=== PATIENT | female | born 1965 | race Caucasian/White ===

== ENCOUNTER 2018-08-17 13:22 | Outpatient (CLI) | payer OTHER | END 2018-08-17 13:23 | disposition home or self-care (01) | DRG 552 | LOC: CONVCARE 13:22 | PROVIDERS: ATTEND Orthopaedic Surgery | DX: M54.9 Dorsalgia, unspecified (principal) | CPT/HCPCS: 72120; 72158; A9585 ==

== ENCOUNTER 2018-08-23 18:35 | Emergency (ER) | payer OTHER ==
[2018-08-23] MEDS ORDERED: ALBUTEROL NEB SOL 2.5MG/3ML 1 VIAL SOL NEB ONE (18:43)
[2018-08-23] MEDS ORDERED: LORAZEPAM 0.5 MG TAB PO ONE (18:55)
[2018-08-23] MEDS ORDERED: LORAZEPAM 0.5 MG TAB ONE (18:59)
[2018-08-23] MEDS ORDERED: ALBUTEROL NEB SOL 2.5MG/3ML 1 VIAL SOL ONE (19:00)
[2018-08-23 19:06] LABS: BASOPHILS % (AUTO) 1 % (0-3); EOSINOPHILS % (AUTO) 3 % (0-9); HEMATOCRIT 36 % (35-47); HEMOGLOBIN 12.2 gm/dl (12.0-15.5); LYMPHOCYTES % (AUTO) 21.9 % (10-50); MEAN CORPUSCULAR HEMOGLOBIN 29.6 pg (27.0-32.0); MEAN CORPUSCULAR HGB CONC 33.7 gm/dl (32.0-36.0); MEAN CORPUSCULAR VOLUME 88 fL (81-99); MONOCYTES % (AUTO) 10.6 % (0-12); NEUTROPHILS % (AUTO) 62.7 % (37-80)
[2018-08-23 19:26] LABS: BLOOD UREA NITROGEN 11 mg/dl (7-18); CALCIUM 8.6 mg/dl (8.5-10.1); CHLORIDE 93 mMol/L (98-107); CREATININE 0.98 mg/dl (0.60-1.00); GLUCOSE 90 mg/dl (74-106); POTASSIUM 3.9 mMol/L (3.5-5.1); SODIUM 130 mMol/L (136-145); TROP I < 0.017 ng/ml (0.000-0.056)
[2018-08-23 19:30] LABS: CARBON DIOXIDE 31.2 mEq/L (21-32)
[2018-08-23 19:39] VITALS: RESP 18; TEMP 98.5
[2018-08-23] MEDS ORDERED: SOLUMEDROL 125 MG/2 ML 125 MG/2 ML PDS IV ONE (20:17)
[2018-08-23] MEDS ORDERED: ONDANSETRON HCL 4 MG/2 ML SOL IV ONE (20:17)
[2018-08-23] MEDS ORDERED: ONDANSETRON HCL 4 MG/2 ML SOL ONE (20:18)
[2018-08-23] MEDS ORDERED: SOLUMEDROL 125 MG/2 ML 125 MG/2 ML PDS ONE (20:18)
[2018-08-23] MEDS: SODIUM CHLORIDE 0.9% 1000ML 1,000 ML IV SCH ×2 (20:27→21:15)
[2018-08-23 20:40] LABS: APPEARANCE,URINE Clear; BILIRUBIN,URINE NEGATIVE (NEGATIVE); COLOR,URINE Yellow; GLUCOSE, URINE (UA) NEGATIVE (NEGATIVE); KETONES,URINE NEGATIVE (NEGATIVE); LEUKOCYTE ESTERASE ,URINE NEGATIVE (NEGATIVE); NITRATE,URINE NEGATIVE (NEGATIVE); OCCULT BLOOD,URINE NEGATIVE (NEG-TRACE); UROBILINOGEN,URINE 0.2 (0.2-1.0 EU)
[2018-08-23 20:57] LABS: BACTERIA NEGATIVE (< 1+); CRYSTALS NEGATIVE (0-3 AVE/HPF); EPITHELIAL CELLS 0-1 (SQUAMOUS); RBC,URINE NEG (0-3AV/HPF); WBC,URINE NEG (0-5AV/HPF)
[2018-08-23] MEDS ORDERED: FLEET ENEMA PR PRN (21:00)
[2018-08-23 21:50] VITALS: PULSE 82; O2SAT 95
[2018-08-23 21:51] VITALS: BP 141/83
== END 2018-08-23 22:02 | disposition home or self-care (01) | DRG 204 ==
LOC: ED 18:35
DX: R06.02 Shortness of breath (principal); E87.1 Hypo-osmolality and hyponatremia; C85.90 Non-Hodgkin lymphoma, unspecified, unspecified site; K59.03 Drug induced constipation; T40.2X5A Adverse effect of other opioids, initial encounter
CPT/HCPCS: 36415; 80048; 81001; 84484; 85025; 85378; 93005; 96365; 96374; 96375; 99284; 99285; J2405; J2930; J7613; A9270-GY

== ENCOUNTER 2018-11-15 21:40 | Emergency (ER) | payer OTHER ==
[2018-11-15 21:58] VITALS: RESP 20; TEMP 97.1; O2SAT 100
[2018-11-15] MEDS ORDERED: HYDROMORPHONE 1 MG/ML SYRINGE IV ONE (22:08)
[2018-11-15] MEDS ORDERED: LEVOFLOXACIN 500 MG TAB PO ONE (22:38)
[2018-11-15] MEDS ORDERED: ALBUTEROL/IPRATROPIUM 1 VIAL SOL INH ONE (22:38)
[2018-11-15] MEDS ORDERED: LEVOFLOXACIN 500 MG TAB ONE (22:39)
[2018-11-15] MEDS ORDERED: ALBUTEROL/IPRATROPIUM 1 VIAL SOL ONE (22:40)
[2018-11-15 23:10] VITALS: BP 110/88; PULSE 107
== END 2018-11-15 23:02 | disposition home or self-care (01) | DRG 195 ==
LOC: ED 21:40
DX: J18.9 Pneumonia, unspecified organism (principal)
CPT/HCPCS: 71046; 99283; A9270-GY